=== PATIENT | male | born 1945 | race Hispanic/Latino ===

== ENCOUNTER → 2017-05-04 | Outpatient (CLI) | payer OTHER ==
[~2017-05-04] MED LIST: ASPI-1005 PO; CITA40TA6 PO; DOXY100T2 PO; FISH1CAP27 PO; GABA-531 PO; GEMF600T3 PO; GLIP-220 PO; HYDR-4068 PO; IPRA4AER IH; ISOS30TA6 PO; LISI10TA7 PO; METF10004 PO; METH750T3 PO; METO25 PO; METO25TA6 PO; PRAV40TA3 PO; RANO500T2 PO; [UNRECOGNIZED DRUG - OTHER] IH
== END | disposition home or self-care (01) ==
LOC: SHCH 12:44
PROVIDERS: ATTEND Internal Medicine Cardiovascular Disease
DX: I65.23 Occlusion and stenosis of bilateral carotid arteries (principal); I34.0 Nonrheumatic mitral (valve) insufficiency; Z95.0 Presence of cardiac pacemaker
CPT/HCPCS: 93306; 93880

== ENCOUNTER 2017-06-07 07:59 | Observation (INO) | payer OTHER ==
[2017-06-05 11:08] VITALS: BP 127/66
[2017-06-05 11:23] LABS: BASOPHILS % (AUTO) 0.8 % (0.0-5.0); EOSINOPHILS % (AUTO) 2.5 % (0.0-8.0); HEMATOCRIT 44.6 % (42-54); MEAN CORPUSCULAR HEMOGLOBIN 30.8 pg (27.0-33.0); MEAN CORPUSCULAR HGB CONC 34.6 g/dL (32.0-36.0); MONOCYTES % (AUTO) 6.6 % (3.0-13.0); NEUTROPHILS % (AUTO) 69.1 % (40.0-77.0); NUCLEATED RED BLOOD CELLS 0.1 % (0.0-0.19); PLATELET COUNT (AUTO) 176 K/uL (130-400); RED BLOOD CELL COUNT(AUTO) 5.01 MIL/uL (4.50-6.20); RED CELL DISTRIBUTION WIDTH 14.9 % (11.0-15.5); WHITE BLOOD COUNT (AUTO) 8.8 K/uL (4.8-10.8)
[2017-06-05 11:28] LABS: CREATININE 0.9 mg/dL (0.5-1.5); POTASSIUM 4.4 mmol/L (3.5-5.1)
[2017-06-05 11:30] LABS: PARTIAL THROMBOPLASTIN TIME 25.9 SEC (26.3-35.5)
[2017-06-05 11:48] LABS: PROTHROMBIN TIME 10.5 SEC (9.6-11.6)
[2017-06-07] VITALS (10 sets, daily range): BP systolic 110–135; BP diastolic 63–82
[~2017-06-07] VITALS: Ht 180.3 cm; Wt 88.5 kg
[~2017-06-07 07:59] MED LIST changes: -DOXY100T2 PO; -FISH1CAP27 PO; -GABA-531 PO; -GEMF600T3 PO; -ISOS30TA6 PO; -METF10004 PO; -METO25 PO; -METO25TA6 PO; -RANO500T2 PO; -[UNRECOGNIZED DRUG - OTHER] IH
[2017-06-07] MEDS ORDERED: SODIUM CHLORIDE 0.9% 1000ML 1,000 ML IV ONE (09:07)
[2017-06-07] MEDS ORDERED: LIDOCAINE HCL 1% MDV 50ML VIAL ONE (11:13)
[2017-06-07] MEDS ORDERED: BUPIVACAINE/PF 0.25% 30ML VIAL IJ ONE (11:17)
[2017-06-07] MEDS ORDERED: CEFAZOLIN 1GM / D5W 50ML 150 ML ONE (11:17)
[2017-06-07] MEDS ORDERED: VANCOMYCIN 1GM+NS 250ML 250 ML IV ONE (11:35)
[2017-06-07] MEDS ORDERED: VANCOMYCIN 1GM+NS 250ML 500 ML IV ONE (11:37)
[2017-06-07] MEDS ORDERED: CEFAZOLIN 1GM / D5W 50ML 50 ML ONE (11:37)
[2017-06-07] MEDS ORDERED: ISOVUE-300 100 ML VIAL IV ONE (11:41)
[2017-06-07] MEDS ORDERED: MEPERIDINE-PF 25 MG/ML SYG ONE ×2 (11:47→11:54)
[2017-06-07] MEDS ORDERED: MIDAZOLAM HCL 1 MG/ML 2ML VIAL ONE ×3 (11:47→12:19)
[2017-06-07] MEDS ORDERED: MEPERIDINE-PF 50 MG/ML SYG ONE (12:19)
[2017-06-07] MEDS ORDERED: OCTYL 2-CYANOACRYLATE 1 EACH TP ONE (12:56)
[2017-06-07] MEDS ORDERED: TEMAZEPAM 30 MG CAP PO PRN (13:15)
[2017-06-07] MEDS: METHOCARBAMOL 750 MG PO SCH ×3 (13:15→21:29)
[2017-06-07] MEDS ORDERED: ACETAMINOPHEN-CODEINE 300/30MG TAB PO PRN ×2 (13:15)
[2017-06-07] MEDS ORDERED: ONDANSETRON HCL 4 MG/2 ML VIAL IV PRN (13:15)
[2017-06-07] MEDS ORDERED: ACETAMINOPHEN 325 MG TAB PO PRN ×2 (13:15)
[2017-06-07] MEDS ORDERED: DOXY100T2 PO (13:23)
[2017-06-07] MEDS ORDERED: METO25 PO (13:23)
[2017-06-07] MEDS: INSULIN HUMULIN R 100 UNIT/ML 3ML SQ SCH ×3 (16:30→22:45)
[2017-06-07] MEDS ORDERED: HYDROCODONE/ACETAMINOPHEN 10/325 MG TAB PO PRN (18:15)
[2017-06-07] MEDS: IPRATROPIUM/ALBUTEROL SULFATE 3 ML SOLUTION IH SCH (19:10)
[2017-06-07] MEDS ORDERED: METOPROLOL TARTRATE 25 MG TAB PO SCH (21:00)
[2017-06-07] MEDS ORDERED: VANCOMYCIN 1GM+NS 250ML 250 ML IV SCH (23:45)
[2017-06-08] MEDS: IPRATROPIUM/ALBUTEROL SULFATE 3 ML SOLUTION IH SCH ×2 (00:43→06:26)
[2017-06-08 03:40] VITALS: BP 127/72
[2017-06-08] MEDS: INSULIN HUMULIN R 100 UNIT/ML 3ML SQ SCH (05:58)
[2017-06-08 07:12] VITALS: BP 116/71
[2017-06-08] MEDS ORDERED: GLIPIZIDE XL 10MG TAB PO SCH (08:00)
[2017-06-08] MEDS: METHOCARBAMOL 750 MG PO SCH (08:11)
[2017-06-08] MEDS ORDERED: ASPIRIN 81MG TAB.CHEW PO SCH (09:00)
[2017-06-08] MEDS ORDERED: LISINOPRIL 5 MG TABLET PO SCH (09:00)
[2017-06-08] MEDS ORDERED: CITALOPRAM 20 MG TABLET PO SCH (09:00)
[2017-06-08] MEDS ORDERED: PRAVASTATIN SODIUM 20 MG PO SCH (21:00)
== END 2017-06-08 11:29 | disposition home or self-care (01) ==
LOC: DAH 07:59 → DAHIP 08:00 → DAH 08:00 → 2BH 14:02
PROVIDERS: ADMIT Internal Medicine Cardiovascular Disease; ATTEND Internal Medicine Cardiovascular Disease
DX: I25.5 Ischemic cardiomyopathy (principal); I44.1 Atrioventricular block, second degree; I11.0 Hypertensive heart disease with heart failure; I50.9 Heart failure, unspecified; I25.10 Atherosclerotic heart disease of native coronary artery without angina pectoris; E11.40 Type 2 diabetes mellitus with diabetic neuropathy, unspecified; E78.5 Hyperlipidemia, unspecified; I47.2 Ventricular tachycardia; J44.9 Chronic obstructive pulmonary disease, unspecified; Z85.71 Personal history of Hodgkin lymphoma; Z95.0 Presence of cardiac pacemaker; I45.10 Unspecified right bundle-branch block
CPT/HCPCS: 33225; 33229; 36415; 71046; 80048; 82948 ×4; 85025; 85610; 85730; 93005 ×2; 94640 ×3; 94664; 96365; 96366; 96372; C1769 ×2; C1894; C1900; C2621; G0378 ×27; J0690 ×2; J2175 ×3; J2250 ×3; J3370 ×3; J3490 ×2; J7030; Q9967; 99152; 99153